=== PATIENT | male | born 1985 | race Caucasian/White ===

== ENCOUNTER 2023-06-04 08:43 | Emergency (ER) | payer OTHER, SELFPAY ==
[2023-06-04 09:09] VITALS: BP 165/105; PULSE 118; RESP 16; TEMP 36.7; O2SAT 99
--- NOTE | 2023-06-04 09:48 | ED.GENADULT ---
HPI - General Adult General Chief complaint: Skin/Abscess/Foreign Body Stated complaint: Back pain Time Seen by Provider: 06/04/23 09:43 Source: patient and RN notes reviewed Mode of arrival: ambulatory Limitations: no limitations History of Present Illness HPI narrative: Patient presents today complaining of a knot to the top of his gluteal cleft that he noted a few days ago and is more painful when sitting. Denies injury or trauma. Denies history of abscesses or boils. He has tried no [id number] treatment prior to arrival. Related Data Allergies Allergy/AdvReac Type Severity Reaction Status Date / Time No Known Allergies Allergy Verified 06/04/23 09:03 Review of Systems Review of Systems: CONSTITUTIONAL: Denies body aches, fever, chills, or sweats. EYES: Denies visual changes, redness, or discharge. ENT: Denies rhinorrhea, congestion, sore throat, or otalgia. CARDIOVASCULAR: Denies chest pain, palpitations, or edema. RESPIRATORY: Denies cough or dyspnea. GASTROINTESTINAL: Denies abdominal pain, nausea, vomiting, or diarrhea. GENITOURINARY: Denies dysuria or hematuria. SKIN: Denies rash, itching, or wounds. knot to buttocks MUSCULOSKELETAL: Denies back pain, joint pain, or myalgia. NEUROLOGIC: Denies headache, numbness, tingling, or weakness. PSYCH: Denies depression or anxiety. [facility] Family History Family History Other Diabetes mellitus Hypertension Social History Social History Smoking status: Never smoker Alcohol intake: current Comments At time of signature, I have reviewed and agree with nursing past medical, surgical, social and family history unless otherwise noted. Please see nursing chart for further information. There is no relevant family history pertinent to the presenting complaint Exam Narrative: GENERAL: Well-appearing, well-nourished, and in no acute distress. HEAD: Normocephalic, atraumatic. EYES: EOMI. No redness or drainage. Conjunctivae normal. ENT: Mucous membranes pink and moist. NECK: Normal AROM. CHEST: No respiratory distress. EXTREMITIES: Normal range of motion. No edema. SKIN: Warm, dry, no rash. Capillary refill normal. Normal skin turgor. Approx 2x2cm erythematous fluctuant lesion to the right inner gluteal cleft. Tender to palpation. NEURO: No focal deficits. Alert and oriented x3. Gait steady. PSYCH: Normal affect. No signs of depression or anxiety. Course Course Level of Care: Express Care Visit Vital Signs Vital signs: Vital Signs Temperature 98.1 F 06/04/23 09:09 Pulse Rate 118 H 06/04/23 09:09 Respiratory Rate 16 06/04/23 09:09 Blood Pressure 165/105 H 06/04/23 09:09 Pulse Oximetry 99 06/04/23 09:09 Temperature 98.1 F 06/04/23 09:09 Pulse Rate 118 H 06/04/23 09:09 Respiratory Rate 16 06/04/23 09:09 Blood Pressure 165/105 H 06/04/23 09:09 Pulse Oximetry 99 06/04/23 09:09 Reviewed Procedures Abscess I/D right buttock: Date of Incision: 06/04/23 Time of Incision: 10:00 Side (if applicable): right Local Anesthetic: lidocaine 1% and with epi Amount of anesthesia used (mL): 3 Technique: incised with #11 blade Amount of fluid expressed (mL): 4 Packing used?: iodoform I&D Results: Pus and Blood Abcess I&D Additional Comments: Dressed with large Band-Aid. Patient tolerated procedure well. Medical Decision Making MDM Narrative Medical decision making narrative: Abscess was lanced and drained. Prescription for bactrim sent to pharmacy. Anticipatory guidance given. Differential Diagnosis Differential Diagnosis: Abscess, pilonidal cyst, cellulitis Vital Signs Vital Signs: Vital Signs Temperature 98.1 F 06/04/23 09:09 Pulse Rate 118 H 06/04/23 09:09 Respiratory Rate 16 06/04/23 09:09 Blood Pr
== END 2023-06-04 10:34 | disposition home or self-care (01) ==
PROVIDERS: Emergency Provider Nurse Practitioner
DX: L02.31 Cutaneous abscess of buttock (principal)
CPT/HCPCS: 10061; 99213; G0463